=== PATIENT | female | born 1965 | race Caucasian/White ===

== ENCOUNTER 2021-12-08 07:46 | Outpatient (REF) | payer BC, SELFPAY ==
[2021-12-08 11:20] LABS: Basophils Absolute Auto 0.1 X10*3/uL (0.0-0.2); Basophils Percent Auto 0.8 % (0-2); Eosinophils Absolute Auto 0.2 X10*3/uL (0.0-0.4); Eosinophils Percent Auto 1.8 % (0-4); Hematocrit 40.3 % (37.0-47.0); Hemoglobin 13.7 g/dl (12.0-16.0); Imm Gran Abs Auto 0.03 X10*3/uL (0.00-0.03); Imm Gran Pct Auto 0.3 % (0.0-0.4); Lymphocytes Absolute Auto 5.9 X10*3/uL (1.2-4.9); Lymphocytes Percent Auto 50.3 % (20-40); MANUAL DIFF FLAG SCAN; Mean Corpuscular Hemoglobin 32.2 pg (27.0-33.0); Mean Corpuscular Volume 94.6 fL (80.0-98.0); Monocytes Absolute Auto 0.5 X10*3/uL (0.1-1.2); Monocytes Percent Auto 4.4 % (2-11); Neutrophils Percent Auto 42.4 % (45-73); Platelet Count 329 X10*3/uL (160-400); Red Blood Count 4.26 X10*6/uL (4.20-5.50); Red Cell Distribution Width 12.5 % (11.0-16.0); SCAN SMEAR FLAG 1; White Blood Count 11.7 X10*3/uL (4.8-10.8)
[2021-12-08 11:21] LABS: Appearance Urine HAZY; Color Urine YELLOW; Glucose Urine UA NEG (NEG); Leukocyte Esterase Urine NEG (NEG); Nitrite Urine NEG (NEG); PH 5.5 (5.0-8.0); Specific Gravity - Urine >= 1.030 (1.005-1.025); Urine Blood NEG (NEG); Urine Ketones NEG (NEG); Urine Protein NEG (NEG-TRACE)
[2021-12-08 11:46] LABS: Alanine Aminotransferase 29 U/L (0-31); Albumin Level 4.5 g/dL (3.5-5.0); Alkaline Phosphatase 76 U/L (39-117); Anion Gap 14 (12-20); Aspartate Amino Transferase 22 U/L (5-31); Bilirubin Total 0.6 mg/dL (0.0-1.0); Blood Urea Nitrogen 10 mg/dL (9-16); Calcium 8.9 mg/dL (8.4-10.2); Carbon Dioxide 22 mmol/L (22-29); Chloride 108 mmol/L (96-108); Estimated Glomerular Filt Rate > 60; Glucose Random 149 mg/dL (60-115); Potassium 3.7 mmol/L (3.3-5.1); Sodium 140 mmol/L (135-145); Total Protein 6.9 g/dL (6.5-8.0)
[2021-12-08 11:54] LABS: Bacteria Urine 1+ /LPF; RBC Urine 0-2 /HPF (0); Squamous Epithelial Cell Urine 2+ /LPF; WBC Urine 0-2 /HPF (0-4)
[2021-12-08 12:08] LABS: Thyroid Stimulating Hormone 2.17 uIU/mL (0.32-4.0); Vitamin D 25-OH Total 37.8 ng/mL (>30)
[2021-12-08 12:09] LABS: SLIDE REVIEW VERIFIED
== END 2021-12-08 07:47 | disposition home or self-care (01) ==
LOC: HO.HMGCLDS 07:46
PROVIDERS: PCP Internal Medicine; Visit Provider Internal Medicine
DX: F33.41 Major depressive disorder, recurrent, in partial remission (principal); K21.9 Gastro-esophageal reflux disease without esophagitis; E55.9 Vitamin D deficiency, unspecified
CPT/HCPCS: 36415; 80053; 81001; 82306; 84443; 85025

== ENCOUNTER 2023-02-10 06:45 | Outpatient (REF) | payer BC, SELFPAY ==
[2023-02-10 11:48] LABS: Basophils Absolute Auto 0.1 X10*3/uL (0.0-0.2); Basophils Percent Auto 0.8 % (0-2); Eosinophils Absolute Auto 0.3 X10*3/uL (0.0-0.4); Hematocrit 40.3 % (37.0-47.0); Hemoglobin 14.1 g/dl (12.0-16.0); Imm Gran Abs Auto 0.04 X10*3/uL (0.00-0.03); Imm Gran Pct Auto 0.3 % (0.0-0.4); Lymphocytes Absolute Auto 5.7 X10*3/uL (1.2-4.9); Lymphocytes Percent Auto 42.7 % (20-40); MANUAL DIFF FLAG SCAN; Mean Corpuscular Hemoglobin 33.4 pg (27.0-33.0); Mean Corpuscular Volume 95.5 fL (80.0-98.0); Monocytes Absolute Auto 0.7 X10*3/uL (0.1-1.2); Monocytes Percent Auto 5.5 % (2-11); Neutrophils Absolute Auto 6.5 x10*3/uL (2.0-8.3); Neutrophils Percent Auto 48.7 % (45-73); Platelet Count 338 X10*3/uL (160-400); Red Blood Count 4.22 X10*6/uL (4.20-5.50); Red Cell Distribution Width 12.3 % (11.0-16.0); SCAN SMEAR FLAG 1; White Blood Count 13.3 X10*3/uL (4.8-10.8)
[2023-02-10 11:50] LABS: Estimated Average Glucose 111 mg/dL; Hemoglobin A1c % 5.5 %
[2023-02-10 11:59] LABS: Appearance Urine Clear; Color Urine Yellow; Glucose Urine UA Negative (Negative); Leukocyte Esterase Urine Negative (Negative); Nitrite Urine Negative (Negative); PH 5.5 (5.0-9.0); Urine Blood Negative (Negative); Urine Ketones Negative (Negative); Urine Protein Negative (Neg-Trace)
[2023-02-10 12:08] LABS: Bacteria Urine Trace (None Seen); Hyaline Casts Urine 0-2 /LPF (0-2); RBC Urine 0-2 /HPF (0-2); WBC Urine 0-5 /HPF (0-5)
[2023-02-10 12:12] LABS: SLIDE REVIEW VERIFIED
[2023-02-10 12:21] LABS: Alanine Aminotransferase 25 U/L (0-31); Albumin Level 4.4 g/dL (3.5-5.0); Alkaline Phosphatase 84 U/L (39-117); Anion Gap 16 (12-20); Aspartate Amino Transferase 21 U/L (5-31); Bilirubin Total 0.6 mg/dL (0.0-1.0); Blood Urea Nitrogen 8 mg/dL (9-16); Calcium 9.2 mg/dL (8.4-10.2); Carbon Dioxide 24 mmol/L (22-29); Chloride 105 mmol/L (96-108); Cholesterol 161 mg/dL; Estimated Glomerular Filt Rate > 60; Glucose Fasting 103 mg/dL (60-99); HDL Cholesterol 43 mg/dL; LDL Cholesterol Calculated 85 mg/dl; Potassium 3.4 mmol/L (3.3-5.1); Sodium 142 mmol/L (135-145); Thyroid Stimulating Hormone 2.55 uIU/mL (0.32-4.0); Triglycerides 165 mg/dL; Vitamin D 25-OH Total 68.5 ng/mL (>30)
== END 2023-02-10 06:46 | disposition home or self-care (01) ==
LOC: HO.HMGCLDS 06:45
PROVIDERS: PCP Internal Medicine; Visit Provider Internal Medicine
DX: I10 Essential (primary) hypertension (principal); F33.41 Major depressive disorder, recurrent, in partial remission; E55.9 Vitamin D deficiency, unspecified; K21.9 Gastro-esophageal reflux disease without esophagitis; R73.01 Impaired fasting glucose
CPT/HCPCS: 36415; 80053; 80061; 81001; 82306; 83036; 84443; 85025

== ENCOUNTER 2024-10-17 09:37 | Outpatient (AMB) | payer BC, SELFPAY ==
--- NOTE | 2024-10-17 09:38 | A.OFFPC_ITS ---
Vital Signs 10/17/24 09:41 Height 5 ft 5.5 in Weight 169 lb BMI 27.7 BP 136/80 Pulse 78 Pulse Source Pulse Oximeter Temp 97.6 F Temp Source Temporal Artery Scan Pulse Oximetry (%) 98 Oxygen Delivery Method Room Air Intake Visit Reasons: 6 month follow up - see comments Vapor Coater Required: No Accompanied by: Self / Same As Patient Allergies No Known Allergies Allergy (Verified 10/17/24 09:39) Tobacco use date assessed: 10/17/24 Dental Screening Dental Screen Date: 10/17/24 Did you have a dental visit in the last 12 months?: No Did you have a dental problem in the last 6 months where you did not have access to dental care?: No [facility] Medical History (Updated 10/17/24 @ 10:07 by Dov Rosa MD) Hyperlipidemia Major depression in partial remission Surgical History History of colonoscopy (~02/14/21) Family History (Updated 10/17/24 @ 09:48 by JENNIFER Davidson) Father Cancer Mother Dementia Social History (Updated 10/17/24 @ 09:48 by JENNIFER Davidson) Housing: Apartment Alcohol intake: current Alcohol intake frequency: does not drink Patient Tobacco Use Status: Current everyday Tobacco user Cigarettes Per Day: 8 service: No Current occupational status: employed Cognitive needs: No Hearing needs: No Vision needs: Yes (reading glasses) Questionnaire PHQ-9 Over the last 2 weeks, how often have you been bothered by any of the following problems? 1. Little interest or pleasure in doing things: several days 2. Feeling down, depressed, or hopeless: more than half the days 3. Trouble falling or staying asleep, or sleeping too much: nearly every day 4. Feeling tired or having little energy: nearly every day 5. Poor appetite or overeating: more than half the days 6. Feeling bad about yourself - or that you are a failure or have let yourself or your family down: more than half the days 7. Trouble concentrating on things, such as reading the newspaper or watching television: several days 8. Moving or speaking so slowly that other people could have noticed. Or the opposite - being so fidgety or restless that you have been moving around a lot more than usual: not at all 9. Thoughts that you would be better off or of hurting yourself in some way: several days Total score: 15 Depression Screening Interpretation: Positive Depression Screening Follow-up: Existing condition and In treatment Depression Screening Done: Yes Source: Developed by Drs. Peyman Yeung, Imelda Wong, Altaf Poole and colleagues, with an educational raj from [employer]. Thrive Questionnaire Date Thrive assessed: 10/17/24 I am a: Patient What is your living situation today?: I have a steady place to live Within the past 12 months, did the food you bought not last and you didn't have the money to get more?: Never true Within the past 12 months, did you worry whether your food would run out before you got money to buy more?: Never true Do you have trouble paying for medicines?: No Do you have trouble getting transportation to medical appointments?: No Do you have trouble paying your heating and electricity bill?: No Do you have trouble taking care of your child, family member or friend?: No Do you have trouble with day-to-day activities such as bathing, preparing meals, shopping, managing finances, etc.?: No Are you currently unemployed and looking for a job?: No Are you interested in more education?: No Please select the resources that you would like help with: None THRIVE Score: 0 AUDIT C Alcohol Use Questionnaire (AUDIT-C) 1. How often do you have a drink containing alcohol?: Never 2. How many drinks containing alcohol do you have on a typical day when you are drinking?: 1 or 2 3. How often do you have six or more drinks on one occasion?: Never Total Score: 0 MOSHE-7 AMB Questionnaire MOSHE-7 Date MOSHE - 7 assessed: 10/17/24 Feeling nervous, anxious, or on edge: 1 = Several days Not being able to stop or control worryin = Nearly every day Worrying too much about different things: 3 = Nearly every day Trouble relaxin = Nearly every day Being so restless that it is hard to sit still: 1 = Several days Becoming easily annoyed or irritable: 1 = Several days Feeling afraid as if something awful might happen: 0 = Not at all Total MOSHE-7 score (0-4 normal; 5-9 mild; 10-14 moderate; 15-21 severe): 12 Source: Developed by Drs. Peyman Yeung, Imelda Wong, Altaf Poole and colleagues, with an educational raj from [employer]. Physical exam (Primary Care) Vital Signs: Last Vital Signs Temp 97.6 F 10/17/24 09:41 Pulse 78 10/17/24 09:41 BP 136/80 10/17/24 09:41 Pulse Ox 98 10/17/24 09:41 Oxygen Delivery Method Room Air 10/17/24 09:41 BMI result Body Mass Index 27.7 Tobacco/Smoking Status: Tobacco use Status Tobacco use date assessed 10/17/24 10/17/24 09:52 Patient Tobacco Use Status Current everyday Tobacco 10/17/24 09:52 PHQ-9: PHQ-9 Score PHQ-9: Total score 15 10/17/24 09:52 Depression Screening Interpretation: Positive Depression Screening Follow-up: Existing condition and In treatment Thrive Assessment: Date of Thrive Assessment Date Thrive assessed 10/17/24 10/17/24 09:52 Coding Level of Care Code New Pt Level 4 (47066) Complex EM visit Add On G2211 Diagnoses Major depression in partial remission F32.4 Hyperlipidemia E78.5 Assessment & Plan Assessment & Plan (1) Major depression in partial remission: Code(s): F32.4 - Major depressive disorder, single episode, in partial remission Category: Medical Plan: Patient has many conditions to see a psychiatrist (mostly geographical location). She would benefit from seeing a psychiatrist and also if a second agent could be added. (2) Hyperlipidemia: Code(s): E78.5 - Hyperlipidemia, unspecified Category: Medical Plan: BW ordered. Will call with results of blood work Plan History of Present Illness The patient is a 59-year-old female presenting for a routine follow-up for chronic conditions and overall health maintenance. Her history includes depression managed with Wellbutrin and Ambien, although she finds the relief limited and the Ambien usage rare. She describes her depression as persistent and impacting her motivation but denies suicidal ideation. The patient works third shift, which restricts her sleep and contributes to chronic fatigue. She lives with her adult son, who adds to her stress levels due to personal issues. Her mammogram screenings are outdated, with the patient highlighting pain from previous experiences and no significant family history to prompt concern. Thyroid function monitoring is also pending. The patient remains functional at her job, which is physically demanding, and manages her daily activities independently. 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 - Lives with adult son who contributes to stress due to personal issues - Limited family support, no relatives nearby for assistance - Comfortable driving in nearby towns but avoids cities like [place] and [place] - Prefers familiarity; comfortable in towns like [facility], [facility] Review of Systems - Psychiatric: Reports depression, denies suicidal ideation - Neurological: Reports insomnia, rare use of Ambien for sleep - Endocrine: Reports unspecified need for thyroid function check - Breast: Reports reluctance towards mammogram due to pain, no family history of breast cancer Physical Exam General: Cooperative and healthy appearing Nutritional Appearance: Well nourished Orientation/consciousness: Patient oriented x3 Limitations: No limitations Head: Normal to inspection General: Appearance normal, both eyes and all related structures Neck: Normal visual inspection Chest: Normal palpation of entire chest wall Respiratory: N ormal respiratory effort Neurology: Patient oriented x3, depression is a little high, patient is functional but reports not caring about anything most of the time, not suicidal. Results - Labs: Pending order for thyroid function test - Tests and Diagnostics: Noted need for mammogram screening Plan I suggested exploring alternative antidepressant options, such as Prozac or Lexapro, for depression, considering the patient's partial response to Wellb utrin. Ambien is used sparingly for insomnia, and thyroid function needs evaluating to eliminate it as a contributing factor. I emphasized mammogram screenings' role in early breast cancer detection, understanding the patient's reluctance due to previous experiences. I also discussed psychiatric support, noting the patient's preference for the [facility] in [place] and potential televisits, given her driving comfort. Patient was informed and verbally consented to the use of an ambient scribe for clinic note documentation during this visit. Discussion Notes During the visit, we discussed continuing Wellbutrin for depression management, with the option to explore alternative antidepressants like Prozac or Lexapro. I highlighted the importance of consistent thyroid function monitoring for potential links to mood disturbance. Mammogram screenings, despite previous discomfort, were recommended to enhance early detection of breast cancer. I addressed insomnia with a limited use of Ambien and psychiatric referrals, including new medication strategies, providing options for manageable access without exacerbating her driving concerns. The importance of routine lab checks and navigating healthcare system preferences were also communicated. Patient Instructions - Consider alternative antidepressants for depression; discuss options if current medication is inadequate. - Continue thyroid monitoring with scheduled blood work. - Evaluate the possibility of routine mammograms for breast cancer screening. - Use Ambien sparingly as needed for insomnia, and monitor its effect. - Should depression persist or worsen, consider a psychiatry consultation at the [facility] in [place]. - Follow up with any new symptoms or concerns in a timely manner. - Maintain current activity levels and seek help if stress and family dynamics impact overall health.
[2024-10-17 09:41] VITALS: BP 136/80; PULSE 78; TEMP 36.4; O2SAT 98; BMI 27.7
== END 2024-10-17 10:07 | disposition home or self-care (01) ==
LOC: HO.HMCSH 09:37
PROVIDERS: PCP Internal Medicine; Visit Provider Internal Medicine
DX: F32.4 Major depressive disorder, single episode, in partial remission (principal); E78.5 Hyperlipidemia, unspecified

== ENCOUNTER → 2024-10-17 09:37 | Outpatient (BNVA) | payer BC, SELFPAY | PROVIDERS: PCP Internal Medicine; Visit Provider Internal Medicine ==

== ENCOUNTER 2025-04-17 09:41 | Outpatient (AMB) | payer BC, SELFPAY ==
[2025-04-17 09:44] VITALS: BP 134/86; PULSE 77; RESP 14; TEMP 36.7; O2SAT 99; BMI 28.3
--- NOTE | 2025-04-17 09:44 | MHC.PC.OV ---
Vital Signs 04/17/25 09:44 Height 5 ft 5.5 in Weight 173 lb BMI 28.3 BP 134/86 Respiration 14 Pulse 77 Pulse Source Pulse Oximeter Temp 98.1 F Temp Source Temporal Artery Scan Pulse Oximetry (%) 99 Oxygen Delivery Method Room Air Intake Visit Reasons: 6 month f/u - see comments Assessment Nurse Required: No Accompanied by: Self / Same As Patient Allergies No Known Allergies Allergy (Verified 04/17/25 09:45) Tobacco use date assessed: 10/17/24 Dental Screening Dental Screen Date: 10/17/24 COUNT INCLUDES THE [facility] Medical History Hyperlipidemia Major depression in partial remission Surgical History History of colonoscopy (~02/14/21) Family History Father Cancer Mother Dementia Social History Housing: Apartment Alcohol intake: current Alcohol intake frequency: does not drink Patient Tobacco Use Status: Current everyday Tobacco user Cigarettes Per Day: 8 service: No Current occupational status: employed Cognitive needs: No Hearing needs: No Vision needs: Yes (reading glasses) Questionnaire PHQ-9 Over the last 2 weeks, how often have you been bothered by any of the following problems? 1. Little interest or pleasure in doing things: several days 2. Feeling down, depressed, or hopeless: more than half the days 3. Trouble falling or staying asleep, or sleeping too much: nearly every day 4. Feeling tired or having little energy: nearly every day 5. Poor appetite or overeating: more than half the days 6. Feeling bad about yourself - or that you are a failure or have let yourself or your family down: more than half the days 7. Trouble concentrating on things, such as reading the newspaper or watching television: several days 8. Moving or speaking so slowly that other people could have noticed. Or the opposite - being so fidgety or restless that you have been moving around a lot more than usual: not at all 9. Thoughts that you would be better off or of hurting yourself in some way: several days Total score: 15 Depression Screening Interpretation: Positive Depression Screening Follow-up: Existing condition and In treatment Depression Screening Done: Yes Source: Developed by Imelda Perry Kurt Kroenke and colleagues, with an educational raj from [employer]. Thrive Questionnaire Date Thrive assessed: 10/17/24 I am a: Patient What is your living situation today?: I have a steady place to live Within the past 12 months, did the food you bought not last and you didn't have the money to get more?: Never true Within the past 12 months, did you worry whether your food would run out before you got money to buy more?: Never true Do you have trouble paying for medicines?: No Do you have trouble getting transportation to medical appointments?: No Do you have trouble paying your heating and electricity bill?: No Do you have trouble taking care of your child, family member or friend?: No Do you have trouble with day-to-day activities such as bathing, preparing meals, shopping, managing finances, etc.?: No Are you currently unemployed and looking for a job?: No Are you interested in more education?: No Please select the resources that you would like help with: None THRIVE Score: 0 AUDIT C Alcohol Use Questionnaire (AUDIT-C) 1. How often do you have a drink containing alcohol?: Never 3. How often do you have six or more drinks on one occasion?: Never Total Score: 0 MOSHE-7 AMB Questionnaire MOSHE-7 Date MOSHE - 7 assessed: 10/17/24 Feeling nervous, anxious, or on edge: 1 = Several days Not being able to stop or control worryin = Nearly every day Worrying too much about different things: 3 = Nearly every day Trouble relaxin = Nearly every day Being so restless that it is hard to sit still: 1 = Several days Becoming easily annoyed or irritable: 1 = Several days Feeling afraid as if something awful might happen: 0 = Not at all Total MOSHE-7 score (0-4 normal; 5-9 mild; 10-14 moderate; 15-21 severe): 12 Source: Developed by Imelda Perry Kurt Kroenke and colleagues, with an educational raj from [employer]. Physical exam (Primary Care) Vital Signs: Last Vital Signs Temp 98.1 F 04/17/25 09:44 Pulse 77 04/17/25 09:44 Resp 14 04/17/25 09:44 BP 134/86 04/17/25 09:44 Pulse Ox 99 04/17/25 09:44 Oxygen Delivery Method Room Air 04/17/25 09:44 BMI result Body Mass Index 28.3 Tobacco/Smoking Status: Tobacco use Status Tobacco use date assessed 10/17/24 04/17/25 09:46 Patient Tobacco Use Status Current everyday Tobacco 04/17/25 09:46 PHQ-9: PHQ-9 Score PHQ-9: Total score 15 04/17/25 09:46 Depression Screening Interpretation: Positive Depression Screening Follow-up: Existing condition and In treatment Thrive Assessment: Date of Thrive Assessment Date Thrive assessed 10/17/24 04/17/25 09:46 Coding Level of Care Code Est Pt Level 4 ([id number]) Complex EM visit Add On G2211 Diagnoses Major depression in partial remission F32.4 Hyperlipidemia E78.5 Assessment & Plan Assessment & Plan (1) Major depression in partial remission: Code(s): F32.4 - Major depressive disorder, single episode, in partial remission Category: Medical Plan: Continue wellbutrin at same dosage (2) Hyperlipidemia: Code(s): E78.5 - Hyperlipidemia, unspecified Category: Medical Plan: BW ordered..will call with results Plan History of Present Illness - The patient is a 60-year-old female presenting with a follow-up for depression management and preventative care discussions. - Depression: The patient has experienced depressive symptoms for over 30 years, characterized by persistent sadness and disinterest. - She regularly takes bupropion and uses Xanax and Ambien as needed. 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 - Gastroesophageal Reflux Disease (GERD): Managed with daily omeprazole. - Tobacco use: The patient smokes but denies alcohol and illicit drug use. - Hypertension: Blood pressure recorded at 134/86 mmHg, slightly elevated. - Preventative care: Declined mammograms despite understanding their importance, citing no family history. - Agreed to a colonoscopy in 2025. 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 - Living situation: Resides with her independent adult son. - Substance use: Smokes tobacco, denies alcohol and illicit drug use. - Exercise: Physical activity primarily occurs at work. Review of Systems - Psychiatric: Reports chronic depressive symptoms for over 30 years, denies anger spells. - Neurological: Denies any significant issues affecting work or daily tasks. - Gastrointestinal: Reports use of omeprazole for GERD, denies any other gastrointestinal issues. - Cardiovascular: Denies chest pain or palpitations, blood pressure slightly elevated. - Respiratory: Denies any respiratory issues. - Genitourinary: Denies any urinary issues. - Musculoskeletal: Reports physical activity at work, no significant musculoskeletal complaints. - Vision: Requires glasses, no issues with night driving. - Hearing: Reports good hearing, no complaints from family about volume levels. Physical Exam General: Cooperative and healthy appearing Nutritional Appearance: Well nourished Orientation/consciousness: Patient oriented x3 Limitations: No limitations Head: Normal to inspection General: Appearance normal, both eyes and all related structures Neck: Normal visual inspection Chest: Normal palpation of entire chest wall Respiratory: N ormal respiratory effort Neurology: Patient oriented x3, vision requires glasses, hearing is mostly good but has a family history of hearing loss. Blood pressure recorded today is 134/80, 86. Results Plan - Continue bupropion for depression, use Xanax and Ambien as needed. - Monitor blood pressure due to slight elevation. - Encourage smoking cessation. - Schedule fasting blood test and follow-up. - Discuss and encourage regular mammograms. - Plan for colonoscopy in 2025. Discussion Notes During the visit, we discussed the management of depression with bupropion and the use of Xanax and Ambien as needed. I advised monitoring blood pressure regularly due to its slight elevation. We talked about the importance of smoking cessation and scheduled a fasting blood test. I encouraged the patient to reconsider regular mammograms and confirmed plans for a colonoscopy in 2025. Patient Instructions - Continue taking bupropion as prescribed. - Use Xanax and Ambien only as needed. - Monitor your blood pressure regularly. - Consider quitting smoking for better health. - Go for a fasting blood test on Wednesday morning. - Reconsider getting regular mammograms. - Plan for a colonoscopy in 2025. Orders: Orders Basic Metabolic Panel Today E78.5 - Hyperlipidemia, unspecified, F32.4 - Major depressive disorder, single episode, in partial remission Lipid Panel Today E78.5 - Hyperlipidemia, unspecified, F32.4 - Major depressive disorder, single episode, in partial remission Complete Blood Count no Diff Today E78.5 - Hyperlipidemia, unspecified, F32.4 - Major depressive disorder, single episode, in partial remission Liver Panel Today E78.5 - Hyperlipidemia, unspecified, F32.4 - Major depressive disorder, single episode, in partial remission Thyroid Stimulating Hormone Today E78.5 - Hyperlipidemia, unspecified, F32.4 - Major depressive disorder, single episode, in partial remission UA and rflx microscopic Today E78.5 - Hyperlipidemia, unspecified, F32.4 - Major depressive disorder, single episode, in partial remission
== END 2025-04-17 10:32 | disposition home or self-care (01) ==
LOC: HO.HMCSH 09:41
PROVIDERS: PCP Internal Medicine; Visit Provider Internal Medicine
DX: F32.4 Major depressive disorder, single episode, in partial remission (principal); E78.5 Hyperlipidemia, unspecified